=== PATIENT | female | born 1975 | race African-American/Black ===

== ENCOUNTER 2017-02-13 13:32 | Emergency (ER) | payer SELFPAY ==
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
[~2017-02-13 13:32] MED LIST: ALBUTEROL17 GM INH; BACTRIM DS TABL1 TA1 PO; FLEXERIL10 MG PO; MUPIROCIN15 GM TOP; NAPROSYN500 MG PO; NO MEDICATIONS; VOLTAREN75 MG PO
== END 2017-02-13 15:05 | disposition home or self-care (01) ==
LOC: SED 13:32
DX: S16.1XXA Strain of muscle, fascia and tendon at neck level, initial encounter (principal); V43.52XA Car driver injured in collision with other type car in traffic accident, initial encounter; Y92.410 Unspecified street and highway as the place of occurrence of the external cause
CPT/HCPCS: 72040; 99283

== ENCOUNTER 2017-06-19 18:32 | Emergency (ER) | payer OTHER ==
[~2017-06-19] VITALS: Ht 170.2 cm; Wt 130.6 kg
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
[2017-06-19 20:06] LABS: URINE SOURCE CLEAN CATCH
[2017-06-19 20:09] LABS: MICRO INDICATED? YES; URINE APPEARANCE CLEAR; URINE BILIRUBIN NEG (NEG); URINE BLOOD 1+ (NEG); URINE COLOR YELLOW; URINE GLUCOSE NEG (NORM); URINE KETONE TRACE (NEG); URINE LEUKOCYTE ESTERASE NEG (NEG); URINE NITRATE NEG (NEG); URINE PROTEIN TRACE (NEG); URINE SPECIFIC GRAVITY >=1.030 (1.003-1.035); URINE UROBILINOGEN 0.2 MG/DL (NORM)
[2017-06-19 20:10] LABS: CULTURE INDICATED? NO; URINE BACTERIA NEG (NEG); URINE MUCUS PRESENT; URINE SQUAMOUS EPITHELIAL CELL OCCAS /[HPF]; URINE WBC 0-2 /[HPF] (0-5)
== END 2017-06-19 21:47 | disposition home or self-care (01) ==
LOC: SED 18:32
PROVIDERS: Nurse Practitioner
DX: S06.0X9A Concussion with loss of consciousness of unspecified duration, initial encounter (principal); S16.1XXA Strain of muscle, fascia and tendon at neck level, initial encounter; S80.02XA Contusion of left knee, initial encounter; M25.462 Effusion, left knee; V43.52XA Car driver injured in collision with other type car in traffic accident, initial encounter; Y92.410 Unspecified street and highway as the place of occurrence of the external cause
CPT/HCPCS: 29530; 70450; 73562; 81003; 84703; 99284